=== PATIENT | female | born 1975 | race Caucasian/White ===

== ENCOUNTER → 2020-01-24 06:00 | Outpatient (CLI) | payer OTHER ==
[~2020-01-24] VITALS: Ht 167.6 cm; Wt 79.4 kg
[~2020-01-24 06:00] MED LIST: CLONAZEPAM0.5 MG PO; COLACE100 MG PO; CYMBALTA60 MG; DIAZEPAM10 MG PO; IBUPROFEN800 MG; MEDROLPACK PO; MOTRI PO; PERCOCET 5-3251 EACH PO; TRAZ PO; TRAZODONE HCL50 MG; ULTRACET PO; VISTARIL50 MG PO
== END | disposition home or self-care (01) ==
LOC: LAB 06:00 → SURH 01-30 04:48 → O/R 01-30 04:48 → SURH 01-30 10:00 → EDSTATUS 01-30 11:15
PROVIDERS: ATTEND Orthopaedic Surgery Orthopaedic Surgery of the Spine
DX: M54.12 Radiculopathy, cervical region (principal); M50.321 Other cervical disc degeneration at C4-C5 level; M50.322 Other cervical disc degeneration at C5-C6 level; Z03.818 Encounter for observation for suspected exposure to other biological agents ruled out

== ENCOUNTER 2020-03-19 10:30 | Inpatient (IN) | payer OTHER ==
[~2020-03-19] VITALS: Ht 165.1 cm; Wt 80.3 kg
[2020-03-26] MEDS ORDERED: COLACE100 MG PO (15:43)
[2020-03-26] MEDS ORDERED: PERCOCET 5-3251 EACH PO (15:44)
[2020-03-26] MEDS ORDERED: CLONAZEPAM1 MG PO (15:44)
== END 2020-03-27 09:27 | DRG 473 ==
LOC: SURH 03-26 10:00 → O/R 03-26 11:11 → SURG 03-26 19:45
PROVIDERS: ADMIT Orthopaedic Surgery Orthopaedic Surgery of the Spine; ATTEND Orthopaedic Surgery Orthopaedic Surgery of the Spine
PROC: 0RG2070 Fusion of 2 or more Cervical Vertebral Joints with Autologous Tissue Substitute, Anterior Approach, Anterior Column, Open Approach (ICD-10-PCS; 2020-03-26)
PROC: 0RB30ZZ Excision of Cervical Vertebral Disc, Open Approach (ICD-10-PCS; 2020-03-26)
PROC: 3E0U0GB Introduction of Recombinant Bone Morphogenetic Protein into Joints, Open Approach (ICD-10-PCS; 2020-03-26)
PROC: 07DS3ZZ Extraction of Vertebral Bone Marrow, Percutaneous Approach (ICD-10-PCS; 2020-03-26)
PROC: 0RG20A0 Fusion of 2 or more Cervical Vertebral Joints with Interbody Fusion Device, Anterior Approach, Anterior Column, Open Approach (ICD-10-PCS; principal; 2020-03-26 10:00)
DX: M50.022 Cervical disc disorder at C5-C6 level with myelopathy (principal)

== ENCOUNTER 2022-10-30 06:25 | Day surgery (SDC) | payer OTHER ==
[~2022-10-30] VITALS: Ht 165.1 cm; Wt 74.8 kg
[~2022-10-30 06:25] MED LIST changes: +CLONAZEPAM1 MG PO
== END 2022-10-30 12:40 | disposition home or self-care (01) ==
LOC: CIR.AMB 06:25
PROVIDERS: ATTEND Orthopaedic Surgery
DX: M75.121 Complete rotator cuff tear or rupture of right shoulder, not specified as traumatic (principal); M75.21 Bicipital tendinitis, right shoulder; M24.111 Other articular cartilage disorders, right shoulder; Z20.822 Contact with and (suspected) exposure to COVID-19